=== PATIENT | male | born 1950 | race Caucasian/White ===

== ENCOUNTER 2017-01-15 16:35 | Emergency (ER) | payer MEDICARE, OTHER ==
[2017-01-15] MEDS ORDERED: FOLIC ACID INJ 1 MG, THIAMINE INJ 100 MG, MAGNESIUM SULFATE 2 GM, MULTIVITAMIN 10 ML in... IV STA ×5 (16:50)
--- NOTE | 2017-01-15 17:01 | ED Physician Documentation ---
History of Present Illness - Stated complaint Stated Complaint: ELEVATED BP - Chief complaint Chief Complaint: General - History obtained from History obtained from: Patient, Family - History of Present Illness Timing: Today Pain level max: 0 Pain level now: 0 Improved by: nothing Worsened by: walking - Additonal information Additional information: Patient is a 66-year-old male who fell at home earlier today and struck the back of his head. He was taken to his primary care provider by his as they are leaving for a trip to [place] in a few days and want to make sure he was okay to fly. His primary care physician and sent him to the emergency department. Patient also states that he has had weakness for the past few days , decreased appetite and has felt warm at times. No fevers. No vomiting. His states that he has had ataxia for several years and that this is not new. Patient has felt short of breath occasionally, though not currently. No chest pain. Patient states that he drinks 2-3 beers daily. Review of Systems Ten Systems: 10 systems reviewed and negative Constitutional: denies: Fever, Chills Ears: denies: Ear pain Nose: denies: Rhinorrhea / runny nose, Congestion Throat: denies: Sore throat Cardiac: denies: Chest pain / pressure Respiratory: denies: Hemoptysis, Wheezing GI: denies: Abdominal Pain, Nausea, Vomiting, Diarrhea : denies: Dysuria, Frequency, Hesitancy Skin: denies: Rash Musculoskeletal: denies: Neck pain, Back pain Neurologic: denies: Focal weakness, Numbness, Confused, Altered mental status, Headache PD PAST MEDICAL HISTORY - Past Medical History Past Medical History: No Cardiovascular: None Respiratory: None Neuro: None Endocrine/Autoimmune: None GI: None : None HEENT: Chronic vision loss Psych: None Musculoskeletal: Other Derm: None - Past Surgical History Ortho: Hip replacement, Arthroscopic surgery - Present Medications Home Medications: Ambulatory Orders Medication Instructions Recorded Confirmed Aspirin Chewable [St Vinod 81 mg PO DAILY 01/15/17 01/15/17 Aspirin] Cephalexin [Keflex] 500 mg PO Q6H #28 capsule 01/15/17 - Allergies Allergies/Adverse Reactions: Allergies Allergy/AdvReac Type Severity Reaction Status Date / Time No Known Drug Allergies Allergy Verified 01/15/17 16:43 - Social History Does the pt smoke?: Yes Smoking Status: Current every day smoker Does the pt drink ETOH?: No Does the pt have substance abuse?: No - Immunizations Immunizations are current?: Yes PD ED PE NORMAL - Vitals Vital signs reviewed: Yes - General General: Alert and oriented X 3, No acute distress, Other (Thin male) - HEENT HEENT: Atraumatic, PERRL, Ears normal, Moist mucous membranes, Pharynx benign, Other (Dry lips) - Neck Neck: Supple, no meningeal sign, No bony TTP - Cardiac Cardiac: RRR, Strong equal pulses - Respiratory Respiratory: No respiratory distress, Clear bilaterally - Abdomen Abdomen: Soft, Non tender, Non distended - Back Back: No CVA TTP, No spinal TTP - Derm Derm: Warm and dry - Extremities Extremities: No deformity, No tenderness to palpate, No edema, No calf tenderness / cord - Neuro Neuro: Alert and oriented X 3, law office receptionist 2-12 intact, No motor deficit, No sensory deficit, Normal speech, Other (Difficulty with cerebellar test bilaterally, especially finger to nose. Ambulates with a wide-based gait) - Psych Psych: Normal mood, Normal affect Results - Vitals Vitals: Vital Signs - 24 hr 01/15/17 01/15/17 01/15/17 16:39 18:09 18:34 Temperature 37.9 C H Heart Rate 112 H 93 94 Respiratory 19 16 21 Rate Blood Pressure 118/74 113/65 104/59 L O2 Saturation 93 95 95 01/15/17 01/15/17 19:56 20:25 Temperature 38.2 C H 37.5 C Heart Rate 93 92 Respiratory 15 19 Rate Blood Pressure 130/75 123/78 O2 Saturation 98 99 Oxygen O2 Source Room air - EKG (time done) 1655 Rate: Rate (enter#) (109) Rhythm: Sinus tachycardia [place]: Normal Intervals: Normal MD QRS: Normal Ischemia: Normal ST segments Computer interpretation: Agree with computer - Labs Labs: Laboratory Tests 01/15/17 01/15/17 01/15/17 16:45 16:45 18:06 WBC 19.9 H RBC 5.02 Hgb 15.1 Hct 44.3 MCV 88.2 MCH 30.0 MCHC 34.0 RDW 13.1 Plt Count 161 MPV 6.9 L Neut # 17.7 H Lymph # 0.6 L [place] # 1.6 H Eos # 0.0 Baso # 0.1 Absolute Nucleated RBC 0.00 Nucleated RBCs 0.0 WBC Morphology NORMAL APPEARANCE Platelet Estimate NORMAL (130-450,000) Platelet Morphology NORMAL APPEARANCE RBC Morph Micro Appear NORMAL APPEARANCE Sodium 131 L Potassium 3.5 Chloride 98 L Carbon Dioxide 22 Anion Gap 11.0 BUN 11 Creatinine 1.0 Estimated GFR (MDRD) 74 L Glucose 122 H Lactic Acid Calcium 8.8 Total Bilirubin 1.7 H AST 25 ALT 13 Alkaline Phosphatase 53 Total Protein 7.1 Albumin 3.9 Globulin 3.2 Albumin/Globulin Ratio 1.2 Lipase 15 L Urine Color YELLOW Urine Clarity CLOUDY Urine pH 5.5 Ur Specific [place] 1.015 Urine Protein TRACE Urine Glucose (UA) NEGATIVE Urine Ketones 15 H Urine Occult Blood LARGE H Urine Nitrite POSITIVE H Urine Bilirubin NEGATIVE Urine Urobilinogen 0.2 (NORMAL) Ur Leukocyte Esterase SMALL H Urine RBC 6-10 H Urine WBC 11-25 H Ur Squamous Epith Cells NONE SEEN Urine Bacteria Few Ur Microscopic Review INDICATED Urine Culture Comments INDICATED Salicylates < 6.0 Urine Opiates Screen NEGATIVE Ur Oxycodone Screen NEGATIVE Urine Methadone Screen NEGATIVE Ur Propoxyphene Screen NEGATIVE Acetaminophen < 10 L Ur Barbiturates Screen NEGATIVE Ur Tricyclics Screen NEGATIVE Ur Phencyclidine Scrn NEGATIVE Ur Amphetamine Screen NEGATIVE U Methamphetamines Scrn NEGATIVE U Benzodiazepines Scrn NEGATIVE Urine Cocaine Screen NEGATIVE U Cannabinoids Screen NEGATIVE Ethyl Alcohol < 5.0 01/15/17 18:50 WBC RBC Hgb Hct MCV MCH MCHC RDW Plt Count MPV Neut # Lymph # [place] # Eos # Baso # Absolute Nucleated RBC Nucleated RBCs WBC Morphology Platelet Estimate Platelet Morphology RBC Morph Micro Appear Sodium Potassium Chloride Carbon Dioxide Anion Gap BUN Creatinine Estimated GFR (MDRD) Glucose Lactic Acid 1.0 Calcium Total Bilirubin AST ALT Alkaline Phosphatase Total Protein Albumin Globulin Albumin/Globulin Ratio Lipase Urine Color Urine Clarity Urine pH Ur Specific [place] Urine Protein Urine Glucose (UA) Urine Ketones Urine Occult Blood Urine Nitrite Urine Bilirubin Urine Urobilinogen Ur Leukocyte Esterase Urine RBC Urine WBC Ur Squamous Epith Cells Urine Bacteria Ur Microscopic Review Urine Culture Comments Salicylates Urine Opiates Screen Ur Oxycodone Screen Urine Methadone Screen Ur Propoxyphene Screen Acetaminophen Ur Barbiturates Screen Ur Tricyclics Screen Ur Phencyclidine Scrn Ur Amphetamine Screen U Methamphetamines Scrn U Benzodiazepines Scrn Urine Cocaine Screen U Cannabinoids Screen Ethyl Alcohol - Rads (name of study) head CT Radiology: Prelim report reviewed, EMP read contemporaneously, See rad report ( Normal head CT. Chronic mild pansinusitis noted. ) cxr Radiology: Prelim report reviewed, EMP read contemporaneously, See rad report ( Normal heart size and clear lungs. ) PD MEDICAL DECISION MAKING - ED course Complexity details: reviewed results, re-evaluated patient, considered differential, d/w patient, d/w family, d/w technical healthcare consultant ED course: Patient is a 66-year-old gentleman who presents to the emergency department after being seen by his primary Care provider earlier today after a fall. I attempted to contact his primary care physician, Dr. Baldwin who had already left the office, therefore I spoke with SHANITA Coombs who was on-call and she looked at Dr. Baldwin's note. 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 The dyspnea has been ongoing for several weeks. Dr. Baldwin appeared to be concerned about the patient's elevated heart rate and potential for atrial fibrillation. Upon arrival to the emergency department, the patient did have an elevated heart rate however was found to be in sinus tachycardia. This is likely secondary to the urinary tract infection and slight fever. Was given IV fluids, IV Rocephin. Blood pressure was normal, heart rate decreased. Given his alcohol use and ataxia was also given a banana bag. There are no acute findings on head CT. No acute findings on chest x-ray. Lactate is normal. We did discuss observation in the hospital, the patient and family would like to go home at this time and as his vital signs appear to have stabilized, I think this is reasonable. They will return immediately if he worsens. Patient and family counseled regarding signs and symptoms for which I believe and urgent re- evaluation would be necessary. Patient with good understanding of and agreement to plan and is comfortable going home at this time This document was made in part using voice recognition software. While efforts are made to proofread this document, sound alike and grammatical errors may occur. Departure - Departure Disposition: 01 Home, Self Care Clinical Impression: Tachycardia UTI (urinary tract infection) Qualifiers: Urinary tract infection type: acute cystitis Hematuria presence: without hematuria Qualified Code(s): N30.00 - Acute cystitis without hematuria Condition: Good Instructions: ED UTI Cystitis Male Follow-Up: Aaron Baldwin MD [Provider Admit Priv/Credential] - Within 3 Days Prescriptions: Cephalexin [Keflex] 500 mg PO Q6H #28 capsule Comments: Take all antibiotics until gone. Return if you worsen. Discharge Date/Time: 01/15/17 20:30
[2017-01-15 17:05] LABS: BASOPHILS # (AUTO) 0.1 10^3/uL (0.0-0.1); BASOPHILS % (AUTO) 0.3 %; HCT - HEMATOCRIT 44.3 % (42.0-52.0); HGB - HEMOGLOBIN 15.1 g/dL (14.0-18.0); LYMPHOCYTES # (AUTO) 0.6 10^3/uL (1.5-3.5); LYMPHOCYTES % (AUTO) 3.1 %; MEAN CORPUSCULAR VOLUME 88.2 fL (80.0-94.0); MEAN PLATELET VOLUME 6.9 fL (7.4-11.4); MONOCYTES # (AUTO) 1.6 10^3/uL (0.0-1.0); MONOCYTES % (AUTO) 7.9 %; NEUTROPHILS # (AUTO) 17.7 10^3/uL (1.5-6.6); NEUTROPHILS % (AUTO) 88.7 %; RED BLOOD COUNT 5.02 10^6/uL (4.70-6.10); RED CELL DISTRIBUTION WIDTH 13.1 % (12.0-15.0); UNCORRECTED WHITE BLOOD COUNT 19.9 x10^3/uL; WHITE BLOOD COUNT 19.9 x10^3/uL (4.8-10.8)
[2017-01-15 17:21] LABS: ACETAMINOPHEN < 10 ug/mL (10-30); ALBUMIN/GLOBULIN RATIO 1.2 (1.0-2.2); BILIRUBIN,TOTAL 1.7 mg/dL (0.2-1.0); BUN - BLOOD UREA NITROGEN 11 mg/dL (6-20); CALCIUM 8.8 mg/dL (8.5-10.3); CARBON DIOXIDE - CO2 22 mmol/L (21-32); CHLORIDE 98 mmol/L (101-111); GFR - MDRD 74 (>89); GLUCOSE 122 mg/dL (70-100); LIPASE 15 U/L (22-51); POTASSIUM 3.5 mmol/L (3.5-5.0); SALICYLATE < 6.0 mg/dL; SODIUM 131 mmol/L (135-145); TOTAL PROTEIN 7.1 g/dL (6.7-8.2)
[2017-01-15 17:26] LABS: PLATELET ESTIMATE, MANUAL NORMAL (130-450,000) (NORMAL); PLATELET MORPHOLOGY NORMAL APPEARANCE (NORMAL); WBC MORPHOLOGY (MULTIPLE) NORMAL APPEARANCE (NORMAL)
--- NOTE | 2017-01-15 18:00 | XRAY Preliminary Report ---
Exam: XR Chest 1 View IMPRESSION: Normal heart size and clear lungs. [facility] SITE ID: [id number]
--- NOTE | 2017-01-15 18:03 | XRAY Report ---
EXAM: CHEST RADIOGRAPHY EXAM DATE: 01/15/2017 05:41 PM. CLINICAL HISTORY: Dyspnea. COMPARISON: None. TECHNIQUE: 1 view. FINDINGS: Lungs/Pleura: No focal opacities evident. No pleural effusion. No pneumothorax. Mediastinum: Within exam limitations, cardiomediastinal contour is normal. Other: Degenerative changes of the right acromioclavicular joint noted. Dextroscoliosis noted. IMPRESSION: Normal heart size and clear lungs. [facility] Referring Provider Line: [phone] SITE ID: [id number]
[2017-01-15 18:14] LABS: BILIRUBIN,URINE NEGATIVE (NEGATIVE); PH,URINE 5.5 PH (5.0-7.5)
[2017-01-15 18:17] LABS: UA w/ MICROSCOPIC CHARGE YES
[2017-01-15 18:24] LABS: UR CULTURE IF IND INDICATED
[2017-01-15] MEDS ORDERED: cefTRIAXone 1 GM VIAL IVP STA (18:37)
--- NOTE | 2017-01-15 18:40 | CT Preliminary Report ---
Exam: CT Head W/O IMPRESSION: Normal head CT. Chronic mild pansinusitis noted. [facility] SITE ID: [id number]
--- NOTE | 2017-01-15 18:43 | CT Report ---
EXAM: CT HEAD EXAM DATE: 01/15/2017 06:24 PM. CLINICAL HISTORY: Fall. Head injury. COMPARISON: None. TECHNIQUE: Multiaxial CT images were obtained from the foramen magnum to the vertex. IV contrast: Non e. Reformats: Coronal. In accordance with CT protocol optimization, one or more of the following dose reduction techniques w ere utilized for this exam: automated exposure control, adjustment of mA and/or KV based on patient s ize, or use of iterative reconstructive technique. FINDINGS: Parenchyma: No intraparenchymal hemorrhage. No evidence of mass, midline shift, or CT findings of inf arction. Luna-white differentiation is distinct. Extraaxial Spaces: Normal for age. No subdural or epidural collections identified. Ventricles: Normal in size and position. Sinuses: Chronic scattered mucosal thickening. No air-fluid levels. The mastoids are clear. Bones: No evidence of fracture or calvarial defect. Other: None. IMPRESSION: Normal head CT. Chronic mild pansinusitis noted. [facility] Referring Provider Line: [phone] SITE ID: [id number]
[2017-01-15] MEDS ORDERED: SODIUM CHLORIDE 0.9% 1,000 ML IV ONE (18:54)
[2017-01-15] MEDS ORDERED: cefTRIAXone 1 GM VIAL ONE (19:22)
[2017-01-15 20:29] VITALS: BP 123/78
== END 2017-01-15 20:30 | disposition home or self-care (01) ==
LOC: ED 16:35
DX: N30.00 Acute cystitis without hematuria (principal); R00.0 Tachycardia, unspecified; Z79.82 Long term (current) use of aspirin; F17.200 Nicotine dependence, unspecified, uncomplicated; W01.0XXA Fall on same level from slipping, tripping and stumbling without subsequent striking against object, initial encounter; Y92.019 Unspecified place in single-family (private) house as the place of occurrence of the external cause
CPT/HCPCS: 36415; 70450; 71010; 80053; 80306; 80307; 81001; 83605; 83690; 85025; 87077; 87086; 87181; 93005; 96361; 96365; 96375; 99284; G0480; J3411; 80320; 80329; 81003

== ENCOUNTER 2017-03-06 15:25 | Outpatient (CLI) | payer MEDICARE, OTHER ==
[2017-03-06 19:09] LABS: BASOPHILS # (AUTO) 0.1 10^3/uL (0.0-0.1); BASOPHILS % (AUTO) 0.6 %; EOSINOPHILS # (AUTO) 0.1 10^3/uL (0.0-0.7); EOSINOPHILS % (AUTO) 0.6 %; HCT - HEMATOCRIT 34.2 % (42.0-52.0); HGB - HEMOGLOBIN 11.2 g/dL (14.0-18.0); LYMPHOCYTES # (AUTO) 1.7 10^3/uL (1.5-3.5); LYMPHOCYTES % (AUTO) 13.9 %; MEAN CORPUSCULAR HEMOGLOBIN 28.1 pg (27.0-31.0); MEAN CORPUSCULAR HGB CONC 32.8 g/dL (32.0-36.0); MEAN CORPUSCULAR VOLUME 85.6 fL (80.0-94.0); MEAN PLATELET VOLUME 6.7 fL (7.4-11.4); MONOCYTES % (AUTO) 8.4 %; NEUTROPHILS # (AUTO) 9.3 10^3/uL (1.5-6.6); NEUTROPHILS % (AUTO) 76.5 %; RED BLOOD COUNT 3.99 10^6/uL (4.70-6.10); RED CELL DISTRIBUTION WIDTH 13.9 % (12.0-15.0); UNCORRECTED WHITE BLOOD COUNT 12.2 x10^3/uL; WHITE BLOOD COUNT 12.2 x10^3/uL (4.8-10.8)
[2017-03-06 19:20] LABS: ALBUMIN/GLOBULIN RATIO 0.6 (1.0-2.2); BILIRUBIN,TOTAL 0.7 mg/dL (0.2-1.0); BUN - BLOOD UREA NITROGEN 15 mg/dL (6-20); CALCIUM 8.7 mg/dL (8.5-10.3); CARBON DIOXIDE - CO2 28 mmol/L (21-32); CHLORIDE 96 mmol/L (101-111); CREATININE 1.2 mg/dL (0.6-1.2); GFR - MDRD 60 (>89); GLUCOSE 91 mg/dL (70-100); PREALBUMIN 13 mg/dL (18-45); SODIUM 134 mmol/L (135-145); TOTAL PROTEIN 7.7 g/dL (6.7-8.2)
== END 2017-03-06 15:26 ==
LOC: LAB.WCP 15:25
PROVIDERS: ATTEND Family Medicine
DX: R63.4 Abnormal weight loss (principal)
CPT/HCPCS: 36415; 80053; 84134; 84443; 85025

== ENCOUNTER 2017-03-27 09:48 | Outpatient (CLI) | payer MEDICARE, OTHER ==
[2017-03-27] MEDS ORDERED: IOPAMIDOL-300 50 ML VIAL ONE (10:18)
[2017-03-27] MEDS ORDERED: IOPAMIDOL-300 100 ML VIAL ONE (10:18)
[2017-03-27] MEDS ORDERED: IOPAMIDOL-300 100 ML VIAL IVP ONE (12:04)
[2017-03-27] MEDS ORDERED: IOPAMIDOL-300 50 ML VIAL PO ONE (12:06)
--- NOTE | 2017-03-27 17:30 | CT Report ---
CT SCAN OF THE ABDOMEN AND PELVIS: 03/27/2017 CLINICAL HISTORY: Weight loss, loss of appetite. COMPARISON: None. CONTRAST: 100 mL of Isovue-300. TECHNIQUE: Axial images of the abdomen and pelvis with coronal and sagittal reconstructions. FINDINGS: Clear lung bases. Negative liver, spleen, left adrenal gland, pancreas. Subcentimeter projection from the lateral right kidney image 26, too small to accurately characterize. Right kidney otherwise unremarkable. No focal left renal pathology. There is a right adrenal lesion measuring 1.8 x 1.4 cm, Hounsfield units 14, consistent with a benign adenoma. Gallstones are present. Artifact from a left total hip replacement obscures detail of the pelvis. However, the prostate appears enlarged with elevation of the bladder base and circumferentially uniform thick bladder wall. The bladder is distended with its superior aspect reaching the umbilicus. There is degenerative change in the spine. Mild levoscoliosis. IMPRESSION: 1. CHOLELITHIASIS WITHOUT FINDINGS OF CHOLECYSTITIS. 2. 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 3. ENLARGED IRREGULAR PROSTATE WITH DISTENDED THICK WALLED URINARY BLADDER REACHING THE UMBILICUS. 4. STATUS POST LEFT TOTAL HIP REPLACEMENT. 5. DEGENERATIVE CHANGE AND SCOLIOSIS IN THE SPINE. In accordance with CT protocol optimization, one or more of the following dose reduction techniques were utilized for this exam: automated exposure control, adjustment of mA and/or KV based on patient size, or use of iterative reconstructive technique. JOB #: [id number] EXT JOB #: [id number] NOEMY
== END 2017-03-27 09:49 | disposition home or self-care (01) ==
LOC: DI 09:48
PROVIDERS: ATTEND Family Medicine
DX: K80.20 Calculus of gallbladder without cholecystitis without obstruction (principal); E27.8 Other specified disorders of adrenal gland; N40.0 Benign prostatic hyperplasia without lower urinary tract symptoms; Z96.642 Presence of left artificial hip joint; M41.9 Scoliosis, unspecified
CPT/HCPCS: 74177; Q9967

== ENCOUNTER 2017-04-02 10:00 | Outpatient (CLI) | payer MEDICARE, OTHER | END 2017-04-02 10:01 | disposition home or self-care (01) | LOC: LAB.WCP 10:00 | PROVIDERS: ATTEND Family Medicine | DX: N31.9 Neuromuscular dysfunction of bladder, unspecified (principal); R82.90 Unspecified abnormal findings in urine | CPT/HCPCS: 87086 ==

== ENCOUNTER 2017-04-23 08:00 | Outpatient (CLI) | payer MEDICARE, OTHER | END 2017-04-23 23:59 | disposition home or self-care (01) | LOC: LAB.R 08:00 | PROVIDERS: ATTEND Surgery | DX: D50.9 Iron deficiency anemia, unspecified (principal) | CPT/HCPCS: 82270 ==

== ENCOUNTER 2017-05-14 09:23 | Observation (INO) | payer MEDICARE, OTHER ==
[2017-05-14] MEDS ORDERED: LACTATED RINGERS 1,000 ML IV ONE (10:02)
[2017-05-14] MEDS ORDERED: GLUCAGON 1 MG/ML VIAL IM ONE (11:05)
[2017-05-14] MEDS ORDERED: MIDAZOLAM 2 MG/2 ML VIAL IVP ONE (11:05)
[2017-05-14] MEDS ORDERED: fentaNYL 100 MCG/2 ML VIAL IVP ONE (11:05)
[2017-05-14] MEDS: LACTATED RINGERS 1,000 ML IV ONE ×2 (12:32→13:00)
[2017-05-14] MEDS ORDERED: SODIUM CHLORIDE FLUSH 0.9% 10 ML SYRINGE IVP PRN (14:38)
[2017-05-14] MEDS ORDERED: SODIUM CHLORIDE 0.9% 1,000 ML IV SCH (15:00)
[2017-05-14] MEDS: TAMSULOSIN 0.4 MG CAPSULE PO SCH (16:40)
[2017-05-14] MEDS: SACCHAROMYCES BOULARDII 250 MG CAPSULE PO SCH ×2 (16:40→17:31)
[2017-05-14] MEDS: AMPICILLIN/SULBACTAM 3 GM in SODIUM CHLORIDE 0.9% MINIBAG 100 ML IV SCH ×2 (16:41→21:23)
[2017-05-14] MEDS: SODIUM CHLORIDE FLUSH 0.9% 10 ML SYRINGE IVP SCH (21:25)
[2017-05-15] MEDS: AMPICILLIN/SULBACTAM 3 GM in SODIUM CHLORIDE 0.9% MINIBAG 100 ML IV SCH ×2 (03:34→09:59)
[2017-05-15] MEDS: SODIUM CHLORIDE FLUSH 0.9% 10 ML SYRINGE IVP SCH (05:07)
[2017-05-15 05:27] LABS: BASOPHILS # (AUTO) 0.1 10^3/uL (0.0-0.1); BASOPHILS % (AUTO) 0.7 %; EOSINOPHILS # (AUTO) 0.2 10^3/uL (0.0-0.7); HGB - HEMOGLOBIN 12.3 g/dL (14.0-18.0); LYMPHOCYTES # (AUTO) 1.5 10^3/uL (1.5-3.5); LYMPHOCYTES % (AUTO) 15.8 %; MEAN CORPUSCULAR HEMOGLOBIN 28.6 pg (27.0-31.0); MEAN CORPUSCULAR HGB CONC 33.4 g/dL (32.0-36.0); MEAN CORPUSCULAR VOLUME 85.8 fL (80.0-94.0); MEAN PLATELET VOLUME 6.2 fL (7.4-11.4); MONOCYTES # (AUTO) 0.9 10^3/uL (0.0-1.0); MONOCYTES % (AUTO) 9.5 %; NEUTROPHILS # (AUTO) 6.9 10^3/uL (1.5-6.6); RED BLOOD COUNT 4.31 10^6/uL (4.70-6.10); RED CELL DISTRIBUTION WIDTH 16.5 % (12.0-15.0); UNCORRECTED WHITE BLOOD COUNT 9.7 x10^3/uL; WHITE BLOOD COUNT 9.7 x10^3/uL (4.8-10.8)
[2017-05-15 07:21] VITALS: BP 113/67
[2017-05-15] MEDS: SACCHAROMYCES BOULARDII 250 MG CAPSULE PO SCH (08:49)
[2017-05-15] MEDS: TAMSULOSIN 0.4 MG CAPSULE PO SCH (08:49)
--- NOTE | 2017-05-15 10:59 | PROVIDER PROGRESS NOTE ---
Subjective - General Admit Date: 05/14/17 - Review of Systems General: positive: No symptoms Gastrointestinal: positive: No symptoms Objective - Patient Data Vital Signs: Vital Signs x48h Temp Pulse Resp BP Pulse Ox 05/15/17 07:20 37.1 C 80 16 113/67 96 05/15/17 05:53 37.1 C 95 18 110/64 95 05/15/17 03:08 37 C 89 18 110/65 97 Weight: Weight 05/13/17 05/14/17 05/15/17 23:59 23:59 23:59 Weight (kg) 54.5 kg Intake & Output: Intake and Output Totals x24h 05/13/17 05/14/17 05/15/17 23:59 23:59 23:59 Intake Total 437.5 560 Balance 437.5 560 - Lab Results Lab Results: 05/15/17 05:10 Other Lab Results: Lab Results x24hrs 05/15/17 Range/Units 05:10 WBC 9.7 (4.8-10.8) x10^3/uL RBC 4.31 L (4.70-6.10) 10^6/uL Hgb 12.3 L (14.0-18.0) g/dL Hct 37.0 L (42.0-52.0) % MCV 85.8 (80.0-94.0) fL MCH 28.6 (27.0-31.0) pg MCHC 33.4 (32.0-36.0) g/dL RDW 16.5 H (12.0-15.0) % Plt Count 211 (130-450) 10^3/uL MPV 6.2 L (7.4-11.4) fL Neut # 6.9 H (1.5-6.6) 10^3/uL Lymph # 1.5 (1.5-3.5) 10^3/uL [place] # 0.9 (0.0-1.0) 10^3/uL Eos # 0.2 (0.0-0.7) 10^3/uL Baso # 0.1 (0.0-0.1) 10^3/uL Absolute Nucleated RBC 0.00 x10^3/uL Nucleated RBC % 0.0 /100WBC - Current Medications Current Medications: Current Medications Generic Name Dose Route Start Last Admin Trade Name Freq PRN Reason Stop Dose Admin Sodium Chloride 1,000 mls @ 50 mls/hr 05/14/17 15:00 05/14/17 21:55 Normal Saline 0.9% IV 50 mls/hr .Q20H JARRED Infusion Ampicillin Sodium/Sulbactam 100 mls @ 200 mls/hr 05/14/17 16:00 05/15/17 10: 30 Sodium 3 gm/ Sodium Chloride IV Infused Q6H JARRED Infusion Saccharomyces Boulardii 250 mg 05/14/17 15:00 05/15/17 08:49 Florastor PO 250 mg BIDWM JARRED Administration Sodium Chloride 10 ml 05/14/17 22:00 05/15/17 05:07 Normal Saline Flush 0.9% IVP Not Given Q8HR JARRED Tamsulosin HCl 0.4 mg 05/14/17 15:00 05/15/17 08:49 Flomax PO 0.4 mg DAILY JARRED Administration - Physical Exam Abdomen: positive: Non-tender Impression/Plan - Problem List Problem List: s/p colonoscopy with difficult polypectomy 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 No complications. Doing well. No fever, abdominal pain or tenderness currently. Will d/c home
--- NOTE | 2017-05-15 11:02 | Discharge Plan ---
Discharge Plan Disposition: 01 Home, Self Care Diet: Regular (Full liquids today regular diet in am if doing well) Activity Restrictions: No Restrictions Shower Restrictions: No Driving Restrictions: No Additional Instructions or Follow Up instructions: call office if develops fever, nausea, abdominal pain No Smoking: If you smoke, Please STOP! Call for help. Follow-up with: Aaron Baldwin MD [Primary Care Provider] -
== END 2017-05-15 11:35 | disposition home or self-care (01) ==
LOC: SDS 09:23 → OBS 14:38
PROVIDERS: ADMIT Surgery; ATTEND Surgery
PROC: 0DBH8ZZ Excision of Cecum, Via Natural or Artificial Opening Endoscopic (ICD-10-PCS; 2017-05-14)
PROC: 0DBP8ZZ Excision of Rectum, Via Natural or Artificial Opening Endoscopic (ICD-10-PCS; 2017-05-14)
PROC: 0DBL8ZZ Excision of Transverse Colon, Via Natural or Artificial Opening Endoscopic (ICD-10-PCS; principal; 2017-05-14 10:30)
DX: D12.0 Benign neoplasm of cecum (principal); D12.3 Benign neoplasm of transverse colon; K62.1 Rectal polyp; N40.0 Benign prostatic hyperplasia without lower urinary tract symptoms
CPT/HCPCS: 36415; 45381; 45384; 45385; 85025; A9270; G0378; J7120

== ENCOUNTER 2018-01-16 08:00 | Outpatient (CLI) | payer MEDICARE, OTHER ==
[2018-01-16 12:19] LABS: BASOPHILS # (AUTO) 0.1 10^3/uL (0.0-0.1); BASOPHILS % (AUTO) 1.2 %; EOSINOPHILS # (AUTO) 0.3 10^3/uL (0.0-0.7); EOSINOPHILS % (AUTO) 4.7 %; HGB - HEMOGLOBIN 14.4 g/dL (14.0-18.0); LYMPHOCYTES # (AUTO) 1.5 10^3/uL (1.5-3.5); LYMPHOCYTES % (AUTO) 25.1 %; MEAN CORPUSCULAR HGB CONC 33.3 g/dL (32.0-36.0); MEAN PLATELET VOLUME 7.4 fL (7.4-11.4); MONOCYTES # (AUTO) 0.5 10^3/uL (0.0-1.0); MONOCYTES % (AUTO) 8.8 %; NEUTROPHILS # (AUTO) 3.6 10^3/uL (1.5-6.6); NEUTROPHILS % (AUTO) 60.2 %; PLT - PLATELET COUNT 228 10^3/uL (130-450); RED CELL DISTRIBUTION WIDTH 13.5 % (12.0-15.0); WHITE BLOOD COUNT 5.9 x10^3/uL (4.8-10.8)
[2018-01-16 12:50] LABS: ALBUMIN 3.7 g/dL (3.2-5.5); TOTAL PROTEIN 7.3 g/dL (6.7-8.2)
== END 2018-01-16 08:01 | disposition home or self-care (01) ==
LOC: LAB.WCP 08:00
PROVIDERS: ATTEND Family Medicine
DX: R97.20 Elevated prostate specific antigen [PSA] (principal); R63.4 Abnormal weight loss; D64.9 Anemia, unspecified; R63.0 Anorexia
CPT/HCPCS: 36415; 80053; 84443; 85025

== ENCOUNTER 2018-01-24 13:40 | Outpatient (CLI) | payer MEDICARE, OTHER | END 2018-01-24 13:41 | disposition home or self-care (01) | LOC: LAB.WCP 13:40 | PROVIDERS: ATTEND Urology | DX: R97.20 Elevated prostate specific antigen [PSA] (principal) | CPT/HCPCS: 36415; 84153 ==

== ENCOUNTER 2018-07-31 11:28 | Outpatient (CLI) | payer MEDICARE, OTHER ==
[2018-07-31 19:23] LABS: PSA FREE 1.9 ng/mL (0.16-2.81)
[2018-07-31 19:24] LABS: PSA TOTAL 8.716 ng/mL (0.000-2.000)
== END 2018-07-31 23:59 | disposition home or self-care (01) ==
LOC: LAB.WCP 11:28
PROVIDERS: ATTEND Family Medicine
DX: N40.1 Benign prostatic hyperplasia with lower urinary tract symptoms (principal); N13.8 Other obstructive and reflux uropathy; G11.9 Hereditary ataxia, unspecified; R97.20 Elevated prostate specific antigen [PSA]
CPT/HCPCS: 36415; 84153; 84154

== ENCOUNTER 2018-11-17 06:27 | Day surgery (SDC) | payer MEDICARE, OTHER ==
[2018-11-17] MEDS ORDERED: LACTATED RINGERS 1,000 ML IV ONE (06:40)
[2018-11-17] MEDS ORDERED: fentaNYL 250 MCG/5 ML VIAL IVP ONE (07:00)
[2018-11-17] MEDS ORDERED: MIDAZOLAM 2 MG/2 ML VIAL IVP ONE (07:00)
[2018-11-17 08:38] VITALS: BP 105/61
== END 2018-11-17 06:28 | disposition home or self-care (01) ==
LOC: SDS 06:27
PROVIDERS: ATTEND Surgery
PROC: 0DBH8ZZ Excision of Cecum, Via Natural or Artificial Opening Endoscopic (ICD-10-PCS; principal; 2018-11-17 08:00)
DX: Z12.11 Encounter for screening for malignant neoplasm of colon (principal); D12.0 Benign neoplasm of cecum; K64.8 Other hemorrhoids; K57.30 Diverticulosis of large intestine without perforation or abscess without bleeding; Z87.891 Personal history of nicotine dependence
CPT/HCPCS: 45380; J3010; J7120

== ENCOUNTER 2018-11-24 14:43 | Outpatient (CLI) | payer MEDICARE, OTHER ==
[2018-11-24 19:23] LABS: PSA FREE 1.89 ng/mL (0.16-2.81)
[2018-11-24 19:24] LABS: PSA TOTAL 8.159 ng/mL (0.000-2.000)
== END 2018-11-24 14:44 | disposition home or self-care (01) ==
LOC: LAB.WCP 14:43
PROVIDERS: ATTEND Urology
DX: R97.20 Elevated prostate specific antigen [PSA] (principal)
CPT/HCPCS: 36415; 84153; 84154

== ENCOUNTER 2019-02-24 08:00 | Outpatient (CLI) | payer MEDICARE, OTHER ==
[2019-02-24 18:55] LABS: PSA FREE 1.626 ng/mL (0.16-2.81)
[2019-02-24 18:56] LABS: PSA TOTAL 7.488 ng/mL (0.000-2.000)
== END 2019-02-24 08:01 | disposition home or self-care (01) ==
LOC: LAB.WCP 08:00
PROVIDERS: ATTEND Urology
DX: R97.20 Elevated prostate specific antigen [PSA] (principal)
CPT/HCPCS: 36415; 84153; 84154

== ENCOUNTER 2019-03-11 12:46 | Outpatient (CLI) | payer MEDICARE, OTHER | END 2019-03-11 12:47 | disposition EMS.NT | LOC: EMS 12:46 | PROVIDERS: ATTEND Surgery | DX: Z04.1 Encounter for examination and observation following transport accident (principal) ==

== ENCOUNTER 2021-03-15 10:05 | Outpatient (CLI) | payer MEDICARE, OTHER ==
[2021-03-15 18:11] LABS: PSA FREE 1.47 ng/mL (0.16-2.81)
[2021-03-15 18:12] LABS: PSA TOTAL 6.42 ng/mL (0.000-2.000)
== END 2021-03-15 23:59 | disposition home or self-care (01) ==
LOC: LAB.WCP 10:05
PROVIDERS: ATTEND Urology
DX: R97.20 Elevated prostate specific antigen [PSA] (principal)
CPT/HCPCS: 36415; 84153; 84154

== ENCOUNTER 2021-06-27 08:00 | Outpatient (CLI) | payer MEDICARE, OTHER ==
[2021-06-27 18:27] LABS: BASOPHILS # (AUTO) 0.1 10^3/uL (0.0-0.1); BASOPHILS % (AUTO) 0.7 %; EOSINOPHILS # (AUTO) 0.1 10^3/uL (0.0-0.7); EOSINOPHILS % (AUTO) 0.8 %; HCT - HEMATOCRIT 45.9 % (42.0-52.0); HGB - HEMOGLOBIN 14.9 g/dL (14.0-18.0); LYMPHOCYTES # (AUTO) 1.2 10^3/uL (1.5-3.5); LYMPHOCYTES % (AUTO) 13.8 %; MEAN CORPUSCULAR HEMOGLOBIN 29.6 pg (27.0-31.0); MEAN CORPUSCULAR HGB CONC 32.5 g/dL (32.0-36.0); MEAN CORPUSCULAR VOLUME 91.1 fL (80.0-94.0); MEAN PLATELET VOLUME 9.7 fL (7.4-11.4); MONOCYTES # (AUTO) 0.6 10^3/uL (0.0-1.0); MONOCYTES % (AUTO) 7.2 %; NEUTROPHILS # (AUTO) 6.5 10^3/uL (1.5-6.6); PLT - PLATELET COUNT 262 10^3/uL (130-450); RED BLOOD COUNT 5.04 10^6/uL (4.70-6.10); RED CELL DISTRIBUTION WIDTH 12.6 % (12.0-15.0); WHITE BLOOD COUNT 8.5 x10^3/uL (4.8-10.8)
[2021-06-27 18:48] LABS: ALBUMIN 4.1 g/dL (3.2-5.5); ALBUMIN/GLOBULIN RATIO 1.2 (1.0-2.2); CALCIUM 9.2 mg/dL (8.5-10.3); POTASSIUM 4.6 mmol/L (3.5-5.0); TOTAL PROTEIN 7.4 g/dL (6.7-8.2)
[2021-06-27 19:48] LABS: ESTIMATED AVERAGE GLUCOSE 103 mg/dL (70-100); HEMOGLOBIN A1c% 5.2 % (4.27-6.07)
== END 2021-06-27 23:59 | disposition home or self-care (01) ==
LOC: LAB.WCP 08:00
PROVIDERS: ATTEND Family Medicine
DX: R73.01 Impaired fasting glucose (principal); D64.9 Anemia, unspecified
CPT/HCPCS: 36415; 80053; 83036; 85025

== ENCOUNTER 2022-05-29 08:10 | Outpatient (CLI) | payer MEDICARE, OTHER ==
[2022-05-29 11:52] LABS: BASOPHILS # (AUTO) 0.1 10^3/uL (0.0-0.1); BASOPHILS % (AUTO) 1.4 %; EOSINOPHILS # (AUTO) 0.4 10^3/uL (0.0-0.7); EOSINOPHILS % (AUTO) 4.9 %; HCT - HEMATOCRIT 45.3 % (42.0-52.0); HGB - HEMOGLOBIN 14.8 g/dL (14.0-18.0); LYMPHOCYTES % (AUTO) 25.5 %; MEAN CORPUSCULAR HEMOGLOBIN 29.8 pg (27.0-31.0); MEAN CORPUSCULAR HGB CONC 32.7 g/dL (32.0-36.0); MEAN CORPUSCULAR VOLUME 91.1 fL (80.0-94.0); MEAN PLATELET VOLUME 9.3 fL (7.4-11.4); MONOCYTES # (AUTO) 0.7 10^3/uL (0.0-1.0); MONOCYTES % (AUTO) 8.8 %; NEUTROPHILS # (AUTO) 4.5 10^3/uL (1.5-6.6); NEUTROPHILS % (AUTO) 58.9 %; PLT - PLATELET COUNT 284 10^3/uL (130-450); RED BLOOD COUNT 4.97 10^6/uL (4.70-6.10); RED CELL DISTRIBUTION WIDTH 12.7 % (12.0-15.0); WHITE BLOOD COUNT 7.7 x10^3/uL (4.8-10.8)
[2022-05-29 13:11] LABS: ESTIMATED AVERAGE GLUCOSE 103 mg/dL (70-100); HEMOGLOBIN A1c% 5.2 % (4.27-6.07)
[2022-05-29 13:16] LABS: PSA TOTAL 6.77 ng/mL (0.000-2.000)
[2022-05-29 13:18] LABS: THYROID STIMULATING HORMONE 2.07 uIU/mL (0.34-5.60)
[2022-05-29 13:29] LABS: ALBUMIN 3.9 g/dL (3.2-5.5); ALBUMIN/GLOBULIN RATIO 1.3 (1.0-2.2); ALKALINE PHOSPHATASE 69 IU/L (42-121); ALT ALANINE AMINOTRANSFERASE 18 IU/L (10-60); AST ASPARTATE AMINOTRANSFERASE 21 IU/L (10-42); BILIRUBIN,TOTAL 0.8 mg/dL (0.2-1.0); BUN - BLOOD UREA NITROGEN 12 mg/dL (6-20); CALCIUM 9.3 mg/dL (8.5-10.3); CARBON DIOXIDE - CO2 32 mmol/L (21-32); CHLORIDE 100 mmol/L (101-111); CHOL/HDL RATIO 2.2 (<5.0); CHOLESTEROL 136 mg/dL; CREATININE 0.9 mg/dL (0.6-1.2); GFR - MDRD 83 (>89); GLUCOSE 97 mg/dL (70-100); HDL CHOLESTEROL 61 mg/dL; LDL CHOLESTEROL,CALCULATED 64 mg/dL; POTASSIUM 4.2 mmol/L (3.5-5.0); SODIUM 140 mmol/L (135-145); TOTAL PROTEIN 6.9 g/dL (6.7-8.2); TRIGLYCERIDES 57 mg/dL; VLDL CHOLESTEROL 11 mg/dL
[2022-05-29 14:29] LABS: PSA FREE 1.76 ng/mL (0.16-2.81)
[2022-05-29 21:12] LABS: CREATININE,URINE 177.5 mg/dL; MICROALBUM/CREATININE RATIO,UR 3.4 ug/mg (<30.0); MICROALBUMIN,URINE 0.6 mg/dL (0-300.0)
== END 2022-05-29 08:11 | disposition home or self-care (01) ==
LOC: LAB.N 08:10
PROVIDERS: ATTEND Internal Medicine
DX: R73.01 Impaired fasting glucose (principal); Z13.220 Encounter for screening for lipoid disorders; R97.20 Elevated prostate specific antigen [PSA]; I47.1 Supraventricular tachycardia; G32.81 Cerebellar ataxia in diseases classified elsewhere
CPT/HCPCS: 36415; 80053; 80061; 82043; 82570; 83036; 83721; 84153; 84154; 84443; 85025

== ENCOUNTER 2022-08-18 11:24 | Outpatient (CLI) | payer MEDICARE, OTHER | END 2022-08-18 11:25 | disposition home or self-care (01) | LOC: LAB.N 11:24 | PROVIDERS: ATTEND Urology | DX: R97.20 Elevated prostate specific antigen [PSA] (principal) | CPT/HCPCS: 36415; 84153 ==